=== PATIENT | female | born 2005 | race Hispanic/Latino ===

== ENCOUNTER 2025-03-22 18:07 | Emergency (ER) | payer OTHER, SELFPAY ==
[~2025-03-22 18:07] MED LIST: Iopamidol 300 61% 100 ML VIAL FS ONE
[2025-03-22 20:48] LABS: #Basophils 0.03 10x3/uL (0.0-0.2); #Eosinophils 0.10 10x3/uL (0.0-0.5); #Monocytes 1.34 10x3/uL (0.0-1.1); #Neutrophils 11.40 10x3/uL (1.5-8.4); %Basophils 0.2 % (0.0-2.0); %Eosinophils 0.7 % (0.0-6.0); %Lymphocytes 14.2 % (18.0-47.0); %Monocytes 8.9 % (0.0-10.0); %Neutrophils 75.6 % (40.0-75.0); Hematocrit 38.3 % (34.9-44.5); Hemoglobin 12.7 g/dL (12.0-15.5); Mean Corpuscular Hemoglobin 28.9 pg (27.0-33.0); Mean Corpuscular Volume 87.2 fL (81.6-98.3); Platelet Count 282 10x3/uL (150-450); Red Blood Cell (RBC) Count 4.39 10x6/uL (3.90-5.03); White Blood Cell (WBC) Count 15.07 10x3/uL (3.5-10.5)
[2025-03-22 20:56] LABS: BHCG - Serum Negative (NEGATIVE); Pregs Control Background? CLEAR/WHITE (CLR/WHITE); Pregs Control Bar Appear? YES (CONTROL BAR)
[2025-03-22 21:02] LABS: ALT (SGPT) 50 U/L (Less than 34); AST (SGOT) 38 U/L (11-34); Albumin 3.5 g/dL (3.1-4.5); Alkaline Phosphatase 52 U/L (40-110); Anion Gap 13 mmol/L (10-20); BUN (Urea Nitrogen) 10 mg/dL (7.0-18.7); Bilirubin, Total 0.4 mg/dL (0.3-1.2); Calc. Creatinine Clearance 0 mL/min (70-130); Calcium 8.8 mg/dL (7.8-10.44); Carbon Dioxide 27 mmol/L (22-29); Chloride 104 mmol/L (98-107); Globulin 3.5 g/dL (2.4-3.5); Glucose 113 mg/dL (70-105); Lipase 21 U/L (8-78); Potassium 3.5 mmol/L (3.5-5.1); Sodium 140 mmol/L (136-145)
[2025-03-22] MEDS ORDERED: Ketorolac Tromethamine 30 MG (1 mL) VIAL ONE (21:09)
[2025-03-22] MEDS ORDERED: Lidocaine 1% (PF) 30 ML VIAL ONE (23:58)
== END 2025-03-23 01:00 | disposition home or self-care (01) ==
LOC: CSHERS 18:07
DX: L02.211 Cutaneous abscess of abdominal wall (principal); E11.9 Type 2 diabetes mellitus without complications; F17.290 Nicotine dependence, other tobacco product, uncomplicated
CPT/HCPCS: 10060; 74177; 80053; 83605; 83690; 84703; 85025; 96374; J1885; Q9967